=== PATIENT | male | born 1990 | race Caucasian/White ===

== ENCOUNTER 2020-12-04 16:40 | Inpatient (IN) | payer OTHER ==
[~2020-12-04] VITALS: Ht 172.7 cm; Wt 95.5 kg
[2020-12-04] MEDS ORDERED: LEXA1TAB PO ×2 (17:03→20:47)
[2020-12-04 17:36] LABS: HEMATOCRIT 48.6 % (42.0-52.0); HEMOGLOBIN 16.8 g/dl (13.5-17.5); MEAN CORPUSCULAR HEMOGLOBIN 29.7 pg (27.0-33.0); MEAN CORPUSCULAR HGB CONC 34.6 g/dl (32.0-36.5); PLATELET COUNT, AUTOMATED 194 10^3/uL (150-450); RED BLOOD COUNT 5.65 10^6/uL (4.30-6.10); WHITE BLOOD COUNT 8.2 10^3/uL (4.0-10.0)
[2020-12-04 18:37] LABS: ACETAMINOPHEN LEVEL < 2.0 UG/ML (10.0-30.0); ALBUMIN 4.1 GM/DL (3.2-5.2); ALT/SGPT 47 U/L (12-78); BILIRUBIN,DIRECT 0.1 MG/DL (0.0-0.2); BILIRUBIN,TOTAL 0.6 MG/DL (0.2-1.0); BLOOD UREA NITROGEN 12 MG/DL (7-18); CALCIUM LEVEL 9.5 MG/DL (8.5-10.1); CARBON DIOXIDE LEVEL 25 MEQ/L (21-32); CHLORIDE LEVEL 107 MEQ/L (98-107); CREATININE FOR GFR 0.88 MG/DL (0.70-1.30); ETHYL ALCOHOL (ETHANOL) < 0.003 % (0.000-0.010); GLOMERULAR FILTRATION RATE > 60.0 (>60); GLUCOSE, FASTING 102 MG/DL (70-100); POTASSIUM SERUM 4.2 MEQ/L (3.5-5.1); SALICYLATE LEVEL < 1.7 MG/DL (5.0-30.0); SODIUM LEVEL 141 MEQ/L (136-145); THYROID STIMULATING HORMONE 0.721 uIU/ML (0.358-3.740); TOTAL PROTEIN 7.3 GM/DL (6.4-8.2)
[2020-12-04 18:48] LABS: AMPHETAMINES LEVEL URINE NEGATIVE (NEGATIVE); BARBITURATES URINE NEGATIVE (NEGATIVE); BENZODIAZEPINES URINE NEGATIVE (NEGATIVE); CANNABINOIDS URINE NEGATIVE (NEGATIVE); COCAINE METABOLITE URINE NEGATIVE (NEGATIVE); METHADONE URINE NEGATIVE (NEGATIVE); OPIATES URINE NEGATIVE (NEGATIVE); PHENCYCLIDINE URINE NEGATIVE (NEGATIVE)
[2020-12-04] MEDS ORDERED: ACETAMINOPHEN TAB 650MG DOSE (2X325MG) PO PRN (20:40)
[2020-12-04] MEDS ORDERED: MAALOX 30 ML SUSP *UDC PO PRN (20:40)
[2020-12-04] MEDS ORDERED: MOM 30ML SUSPENSION UDC PO PRN (20:40)
[2020-12-05 01:40] VITALS: BP 124/70
[2020-12-05] MEDS: NICOTINE 21MG/24HR 1 EA TRANSDERMAL TD SCH (10:23)
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
[2020-12-05] MEDS: ESCITALOPRAM OXALATE 10 MG TAB (LEXAPRO) PO SCH (11:59)
[2020-12-05 18:02] VITALS: BP 122/70
[2020-12-05] MEDS ORDERED: LORazepam 1 MG TAB PO ONE (21:05)
[2020-12-05] MEDS: risperiDONE 2 MG TAB PO SCH (21:20)
[2020-12-05] MEDS: traZODone 50 MG TAB PO PRN (22:51)
[2020-12-06 06:29] VITALS: BP 109/55
[2020-12-06] MEDS: ESCITALOPRAM OXALATE 10 MG TAB (LEXAPRO) PO SCH (08:56)
[2020-12-06] MEDS: NICOTINE 21MG/24HR 1 EA TRANSDERMAL TD SCH (08:56)
--- NOTE | 2020-12-06 10:24 | MHIPNPDOC ---
[facility] Progress Note Progress Note DATE OF SERVICE: 12/06/20 The patient reported that he took or the prescribed medicine, including risperidone and stated that he felt some relief already. He reported that the hallucinations are not as intense and he had fairly peaceful night of sleep and is feeling a little bit more hopeful. He is denying any command hallucination and the more complain of side effect and is willing to fully cooperate. His behavior has been in control her, with no acting out behavior. HISTORY: . VITAL SIGNS: See below. NEW TEST RESULTS: . CURRENT MEDICATIONS: See below. MENTAL STATUS EXAMINATION: Patient is a 30-year old male, who is , pleasant Speech: Is rational, coherent. Language skills are good. Thought processes including: , Organized. Thought content: , Not reporting any paranoia and denies any suicidal thoughts. Abstract reasoning, and computation: Failure. Description of associations: Firm. Description of abnormal or psychotic thoughts: , No delusions, but persistent hallucinations. Judgment: Fair. Insight: fair. . Orientation: Where oriented. Recent and remote memory: Good . Attention span and concentration: Good. Language: . Fund of knowledge: Average. Mood: , Not as anxious or depressed. Affect: animated and appropriate. DIAGNOSES: 1. Major depression with psychotic feature. 2. . 3. . ASSESSMENT:Cooperating and tolerating his medicine and reports slight reduction in his symptoms MANAGEMENT PLAN: Continue the current treatment. TIME SPENT: 20 minutes. Vital Signs Vital Signs Date Time Temp Pulse Resp B/P (MAP) Pulse Ox O2 Delivery O2 Flow Rate FiO2 12/06/20 06:29 97.9 71 16 109/55 (73) 96 Room Air Current Medications Current Medications Medications (Trade) Dose Ordered Sig/Mami Route PRN Reason Start Time Stop Time Status Last Admin Dose Admin Acetaminophen (Tylenol Tab) 650 mg Q6HP PRN PO HEADACHE or DISCOMFORT 12/04/20 20:40 Al Hydrox/Mg Hydrox/Simethicone (Mylanta) 30 ml Q4HP PRN PO HEARTBURN/INDIGESTION 12/04/20 20:40 Escitalopram Oxalate (Lexapro) 10 mg DAILY PO 12/05/20 09:00 12/06/20 08:56 Home Med (Med Rec Complete!) ASDIRECTED XX 12/05/20 01:15 12/05/20 01:13 DC Magnesium Hydroxide (Milk Of Magnesia) 30 ml DAILYPRN PRN PO CONSTIPATION 12/04/20 20:40 Nicotine (Nicoderm Cq 21mg) 1 patch DAILY TD 12/05/20 09:00 12/06/20 08:56 Risperidone (RisperDAL) 2 mg QHS PO 12/05/20 21:00 12/05/20 21:20 Trazodone HCl (Desyrel) 50 mg QHSP PRN PO INSOMNIA 12/04/20 20:40 12/05/20 22:51 Allergies Coded Allergies: bee venom protein (honey bee) (Verified Allergy, Unknown, 12/04/20) JOSELIN MORE M.D. December 06, 2020 10:24
[2020-12-06 15:55] VITALS: BP 103/55
[2020-12-06 15:58] VITALS: BP_SYST 103; BP_SYST 141; BP_DIAS 55; BP_DIAS 69
[2020-12-06] MEDS: risperiDONE 2 MG TAB PO SCH (21:00)
[2020-12-06] MEDS: traZODone 50 MG TAB PO PRN (22:32)
[2020-12-07 06:05] VITALS: BP 112/62
[2020-12-07] MEDS: ESCITALOPRAM OXALATE 10 MG TAB (LEXAPRO) PO SCH (09:14)
[2020-12-07] MEDS: NICOTINE 21MG/24HR 1 EA TRANSDERMAL TD SCH (09:14)
--- NOTE | 2020-12-07 09:28 | MHIPNPDOC ---
[facility] Progress Note Progress Note DATE OF SERVICE: 12/07/20 The patient fully cooperated with the medications and reports that he is feeling better. He slept over 8 hours and didn't experience any auditory or visual ashley lucinations and claims that he didn't see anything on the wall since his admission, and feels very relieved. He is in good control appears more relaxed than animated and denies any active suicidal thoughts. He is hoping that his discharge paperwork gets processed the past and hoping to be out of service. He is denying any side effects from risperidone and feels that he is on the right combination of medications. HISTORY: . VITAL SIGNS: See below. NEW TEST RESULTS: . CURRENT MEDICATIONS: See below. MENTAL STATUS EXAMINATION: Patient is a 30 -year old male, who is , pleasant and cooperative. Speech: Is , relevant, coherent. Language skills are good. Thought processes including: Goal directed . Thought content: No gross delusions and denies any active suicidal thoughts. Abstract reasoning, and computation: Good. Description of associations: Good. Description of abnormal or psychotic thoughts: Reports marked reduction in his hallucinations. Judgment: , Fair. Insight: , Fair. Orientation: , Well oriented. Recent and remote memory: Good. Attention span and concentration: Good. Language: . Fund of knowledge: Average. Mood: , Not as anxious or depressed. Affect: , Appropriate, slightly blunted. DIAGNOSES: 1. . Major depression with psychotic feature 2. . 3. . ASSESSMENT:Maintaining good control and showing improvement MANAGEMENT PLAN: . Continue with the current medicine and supportive therapy. TIME SPENT: 20 minutes. Vital Signs Vital Signs Date Time Temp Pulse Resp B/P (MAP) Pulse Ox O2 Delivery O2 Flow Rate FiO2 12/07/20 06:05 98.1 75 18 112/62 (79) 95 Room Air Current Medications Current Medications Medications (Trade) Dose Ordered Sig/Mami Route PRN Reason Start Time Stop Time Status Last Admin Dose Admin Acetaminophen (Tylenol Tab) 650 mg Q6HP PRN PO HEADACHE or DISCOMFORT 12/04/20 20:40 Al Hydrox/Mg Hydrox/Simethicone (Mylanta) 30 ml Q4HP PRN PO HEARTBURN/INDIGESTION 12/04/20 20:40 Escitalopram Oxalate (Lexapro) 10 mg DAILY PO 12/05/20 09:00 12/07/20 09:14 Home Med (Med Rec Complete!) ASDIRECTED XX 12/05/20 01:15 12/05/20 01:13 DC Magnesium Hydroxide (Milk Of Magnesia) 30 ml DAILYPRN PRN PO CONSTIPATION 12/04/20 20:40 Nicotine (Nicoderm Cq 21mg) 1 patch DAILY TD 12/05/20 09:00 12/07/20 09:14 Risperidone (RisperDAL) 2 mg QHS PO 12/05/20 21:00 12/06/20 21:00 Trazodone HCl (Desyrel) 50 mg QHSP PRN PO INSOMNIA 12/04/20 20:40 12/06/20 22:32 Allergies Coded Allergies: bee venom protein (honey bee) (Verified Allergy, Unknown, 12/04/20) JOSELIN MORE M.D. December 07, 2020 09:27
[2020-12-07 18:20] VITALS: BP 147/74
[2020-12-07] MEDS: risperiDONE 2 MG TAB PO SCH (21:00)
[2020-12-07] MEDS: traZODone 50 MG TAB PO PRN (21:01)
[2020-12-08 06:29] VITALS: BP 131/66
[2020-12-08] MEDS: NICOTINE 21MG/24HR 1 EA TRANSDERMAL TD SCH (09:24)
[2020-12-08] MEDS: ESCITALOPRAM OXALATE 10 MG TAB (LEXAPRO) PO SCH (09:24)
[2020-12-08 16:42] VITALS: BP 155/83
--- NOTE | 2020-12-08 18:18 | MHIPN ---
[facility] PROGRESS NOTE DATE: 12/08/2020 The patient today tells me that, "I'm doing great." He says he slept good. He has no complaints. He is denying suicidal thoughts. MENTAL STATUS EXAMINATION: This patient is alert and oriented time three. Eye contact is fairly good. He is verbally spontaneous. There is no formal thought disorder noted. His mood is good. Affect is appropriate to mood. He is not psychotic, suicidal, homicidal. Concentration and memory are intact. Insight and judgment are fair. DIAGNOSIS: Major depressive disorder with psychotic symptoms. TREATMENT PLAN: At this point, we will continue to monitor the patient for continued resolution of any psychotic symptoms and stabilization of his mood and resolution of any suicidal thoughts. We will continue to titrate medications as indicated.
[2020-12-08] MEDS: traZODone 50 MG TAB PO PRN (20:24)
[2020-12-08] MEDS: risperiDONE 2 MG TAB PO SCH (20:24)
[2020-12-08] MEDS ORDERED: traZODone 50 MG TAB PO ONE (22:20)
[2020-12-09 06:30] VITALS: BP 110/63
[2020-12-09] MEDS: NICOTINE 21MG/24HR 1 EA TRANSDERMAL TD SCH (08:38)
[2020-12-09] MEDS: ESCITALOPRAM OXALATE 10 MG TAB (LEXAPRO) PO SCH (08:39)
[2020-12-09 17:59] VITALS: BP 139/62
[2020-12-09] MEDS: risperiDONE 2 MG TAB PO SCH (20:08)
[2020-12-09] MEDS ORDERED: traZODone 100 MG TAB PO PRN (22:20)
[2020-12-10 06:55] VITALS: BP 137/71
[2020-12-10] MEDS: ESCITALOPRAM OXALATE 10 MG TAB (LEXAPRO) PO SCH (08:28)
[2020-12-10] MEDS: NICOTINE 21MG/24HR 1 EA TRANSDERMAL TD SCH (08:29)
[2020-12-10] MEDS ORDERED: LEXA1TAB PO (08:50)
[2020-12-10] MEDS ORDERED: RISP-9 PO (08:50)
--- NOTE | 2020-12-10 11:25 | MHDSPDOC ---
[facility] Discharge Summary Discharge Summary DATE OF ADMISSION: December 04, 2020 at 20:40 DATE OF DISCHARGE: 12/10/20 DISCHARGE DIAGNOSES: 1. .major depression with psychotic feature 2. . REASON FOR ADMISSION: 30-year-old who had a recent episode of depression, currently taking Lexapro brought to the emergency room after he reported increasing auditory and visual hallucination and vague suicidal thoughts CONSULTANTS INVOLVED: None TREATMENT AND PROGRESS ON THE UNIT : Was seen for daily supportive therapy. Continued with these are Lexapro and started risperidone 2 mg at bedtime. Patient showed rapid improvement with decreasing hallucination and denied any more suicidal thoughts. HOSPITAL COURSE: The patient was a little dramatic, but pleasant throughout the stay and maintained good control. He tolerated risperidone without any side effect. Reports marked the relief in his psychotic symptoms and strongly denies any suicidal thoughts. He stated safe to return to the unit and wait for his scheduled discharge from the service. He denies any other thoughts, plan or intent and maintained a good control. DISCHARGE ASSESSMENT: Markedly improved. No suicide MENTAL STATUS EXAMINATION ON DISCHARGE: Patient is a 30-year old male, who is in no acute distress. Speech is clear, organized. Language skills are good. Thought processes including: Well-organized. Thought content: no hallucinations anymore and no suicidal thoughts. Abstract reasoning, and computation: Flare. Description of associations: Rational, coherent. Description of abnormal or psychotic thoughts: None. Judgment: Fair . Insight: Fair. Orientation to , well oriented. Recent and remote memory: Good. Attention span and concentration: Good. Language: . Fund of knowledge: Average. Mood: Euthymic. Affect: , Animated and appropriate. MEDICATIONS ON DISCHARGE: - , Lexapro 10 mg for 7 days. - Risperidone 2 mg at bedtime for 7 day. With a 3 refills which - for . PLAN/FOLLOWUP ARRANGEMENTS: As arranged. The amount of time spent in the coordination of care for this patient was approximately 45 minutes. ETOH/Disorder Med Rx ETOH/DRUG DISORDER RX: N/A Vital Signs/I&Os Vital Signs Date Time Temp Pulse Resp B/P (MAP) Pulse Ox O2 Delivery O2 Flow Rate FiO2 12/10/20 06:55 99.4 75 20 137/71 (93) 96 Room Air Laboratory Data Microbiology Microbiology 12/04/20 Respiratory Virus Panel (PCR) (BENNY) - Final, Complete Medications Scheduled Escitalopram Oxalate (Lexapro) 10 Mg Tablet, 10 MG PO DAILY for depression for 7 Days, #7 Risperidone (Risperidone) 2 Mg Tablet, 2 MG PO QHS for hallucination for 7 Days, #7 Allergies Coded Allergies: bee venom protein (honey bee) (Verified Allergy, Unknown, 12/04/20) JOSELIN MORE M.D. December 10, 2020 11:25
--- NOTE | 2020-12-10 11:33 | MHIPN ---
[facility] PROGRESS NOTE DATE: 12/09/2020 HISTORY OF PRESENT ILLNESS: The patient today states "I'm doing great." He says he slept well. He has no complaints. MENTAL STATUS EXAM: This patient is alert and oriented times 3. Eye contact is good. He is verbally spontaneous. There is no formal thought disorder noted. Mood is "great." Affect appropriate. Patient is not psychotic, suicidal or homicidal. Concentration is fair. Memory intact. Insight and judgment is fair. DIAGNOSIS: Major depression disorder with psychotic symptoms. TREATMENT PLAN: We will continue to monitor the patient for continued elevation and stabilization of his mood and continue resolution of any psychotic symptoms or suicidal ideation.
== END 2020-12-10 11:39 | disposition home or self-care (01) | DRG 885 ==
LOC: M ED 16:40 → M ED INP 20:40 → M PSY 12-05 01:07
PROVIDERS: ADMIT Psychiatry & Neurology Psychiatry; ATTEND Psychiatry & Neurology Psychiatry
DX: F32.3 Major depressive disorder, single episode, severe with psychotic features (principal); Z91.030 Bee allergy status

== ENCOUNTER 2020-12-16 22:34 | Inpatient (IN) | payer OTHER ==
[~2020-12-16] VITALS: Ht 172.7 cm; Wt 100.6 kg
[~2020-12-16 22:34] MED LIST: LEXA1TAB PO; RISP-9 PO
[2020-12-16 22:54] LABS: HEMATOCRIT 45.5 % (42.0-52.0); HEMOGLOBIN 15.7 g/dl (13.5-17.5); MEAN CORPUSCULAR HEMOGLOBIN 29.5 pg (27.0-33.0); MEAN CORPUSCULAR HGB CONC 34.5 g/dl (32.0-36.5); MEAN CORPUSCULAR VOLUME 85.5 fl (80.0-96.0); PLATELET COUNT, AUTOMATED 185 10^3/uL (150-450); RED BLOOD COUNT 5.32 10^6/uL (4.30-6.10); WHITE BLOOD COUNT 8.7 10^3/uL (4.0-10.0)
[2020-12-16 23:07] LABS: AMPHETAMINES LEVEL URINE NEGATIVE (NEGATIVE); BARBITURATES URINE NEGATIVE (NEGATIVE); BENZODIAZEPINES URINE NEGATIVE (NEGATIVE); CANNABINOIDS URINE NEGATIVE (NEGATIVE); COCAINE METABOLITE URINE NEGATIVE (NEGATIVE); METHADONE URINE NEGATIVE (NEGATIVE); OPIATES URINE NEGATIVE (NEGATIVE); PHENCYCLIDINE URINE NEGATIVE (NEGATIVE)
[2020-12-16 23:39] LABS: ACETAMINOPHEN LEVEL < 2.0 UG/ML (10.0-30.0); ALBUMIN 3.6 GM/DL (3.2-5.2); ALT/SGPT 74 U/L (12-78); BILIRUBIN,DIRECT < 0.1 MG/DL (0.0-0.2); BILIRUBIN,TOTAL 0.3 MG/DL (0.2-1.0); BLOOD UREA NITROGEN 12 MG/DL (7-18); CARBON DIOXIDE LEVEL 26 MEQ/L (21-32); CHLORIDE LEVEL 108 MEQ/L (98-107); CREATININE FOR GFR 0.86 MG/DL (0.70-1.30); ETHYL ALCOHOL (ETHANOL) < 0.003 % (0.000-0.010); GLOMERULAR FILTRATION RATE > 60.0 (>60); GLUCOSE, FASTING 124 MG/DL (70-100); SALICYLATE LEVEL < 1.7 MG/DL (5.0-30.0); SODIUM LEVEL 142 MEQ/L (136-145); TOTAL PROTEIN 6.9 GM/DL (6.4-8.2)
--- NOTE | 2020-12-17 00:18 | REPVR ---
PROCEDURE INFORMATION: Exam: CT Head Without Contrast Exam date and time: 12/16/2020 11:59 PM Age: 30 years old Clinical indication: Other: Head injury TECHNIQUE: Imaging protocol: Computed tomography of the head without contrast. Radiation optimization: All CT scans at this facility use at least one of these dose optimization techniques: automated exposure control; mA and/or kV adjustment per patient size (includes targeted exams where dose is matched to clinical indication); or iterative reconstruction. COMPARISON: No relevant prior studies available. FINDINGS: Brain: Normal. No hemorrhage. Unremarkable white matter. No mass effect. Cerebral ventricles: No ventriculomegaly. Paranasal sinuses: Visualized sinuses are unremarkable. No fluid levels. Mastoid air cells: Visualized mastoid air cells are well aerated. Bones/joints: Unremarkable. No acute fracture. Soft tissues: Unremarkable. IMPRESSION: No acute intracranial abnormality. Electronically signed by: Eric Black On 12/17/2020 00:17:44 AM
[2020-12-17] MEDS ORDERED: LEXA1TAB PO (00:26)
[2020-12-17] MEDS ORDERED: RISP2TAB32 PO (00:26)
[2020-12-17] MEDS: ESCITALOPRAM OXALATE 10 MG TAB (LEXAPRO) PO SCH (09:03)
[2020-12-17 16:03] LABS: RSV AMPLIFICATION NEGATIVE (NEGATIVE)
[2020-12-17] MEDS: risperiDONE 2 MG TAB PO SCH ×2 (20:52→21:39)
[2020-12-17] MEDS ORDERED: traZODone 50 MG TAB PO ONE (21:00)
[2020-12-18] MEDS: ESCITALOPRAM OXALATE 10 MG TAB (LEXAPRO) PO SCH (08:01)
[2020-12-18] MEDS ORDERED: NICOTINE 7 MG/24 HR TRANSDERMAL TD ONE (10:55)
[2020-12-18] MEDS ORDERED: ACETAMINOPHEN TAB 650MG DOSE (2X325MG) PO PRN (18:35)
[2020-12-18] MEDS ORDERED: MOM 30ML SUSPENSION UDC PO PRN (18:35)
[2020-12-18] MEDS ORDERED: MAALOX 30 ML SUSP *UDC PO PRN (18:35)
[2020-12-18 21:12] VITALS: BP 124/89
[2020-12-18] MEDS: risperiDONE 2 MG TAB PO SCH (21:39)
[2020-12-18] MEDS: traZODone 50 MG TAB PO PRN (23:04)
[2020-12-19 06:00] VITALS: BP 111/64
[2020-12-19] MEDS: NICOTINE 21MG/24HR 1 EA TRANSDERMAL TD SCH (08:02)
[2020-12-19] MEDS: ESCITALOPRAM OXALATE 10 MG TAB (LEXAPRO) PO SCH (08:02)
--- NOTE | 2020-12-19 10:12 | MHHPEPDOC ---
General Date Of Admission: Dec 18, 2020 Legal Status: 9.39 Chief Complaint ". I made a mistake with my medicine and I was feeling confused History of Present Illness HISTORY OF THE PRESENT ILLNESS: Patient is a 30 -year-old , male, who [was recently discharged after being stabilized with Lexapro and Risperdal. Patient claims that on Thursday he took extra dose of Lexapro but didn't take his risperidone and was experiencing increasing confusion and paranoia who was brought to emergency. He claims that he is feeling much better now after spending 2 nights at the emergency room and is not having any acute symptoms of paranoia and feeling much better.]. Psychiatric Review of Systems Depression (2 or more weeks): denies Mckenzie (4 or more days of): denies Psychosis: paranoia PTSD: denies Anxiety: situational anxiety Past Psychiatric History Previous Psychiatric Diagnosis: [2 recent admission. Recent discharge about a week ago. Major depression with psychosis]. Previous Psychiatric Admissions: . Suicide Attempts: [No history of suicidal attempt]. Psychiatric Follow-up: [In follow-up at behavioral health unit]. Psychiatric medications: ., Lexapro 10 mg and risperidone 2 mg at bedtime Past Medical History Medical Problems None Head Injury: No Seizures: No Hospitalizations: No Surgeries: No Family Medical/Psychiatric HX Medical Problems Noncontributory Psychiatric Disorders: No Addiction: No Suicide Attemps/Completions: No Addiction History denies Social History Childhood: Uneventful]. Abuse/Trauma:[Denies]. Current Living Situation: [Lives at the [facility]]. Education: [High school]. 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 Social Support: . Legal: . Marital: . Mental Status Examination General Appearance: well groomed, appears stated age Build: average Demeanor: average Eye Contact: average Activity: average Behavior: cooperative Speech: clear, normal volume Mood: euthymic Affect: full, appropriate, congruent Thought Process: other (rational, coherent) Thought Content (Delusions): none reported Thought Content (Other): none reported Thought Content (Aggressive): none reported Perception (Hallucinations): none reported Perception (Other): none reported Cognition (Impairment of): none reported Cognition(Intelligence Est.): average Oriented: Awake, Alert, Oriented times three Insight: fair Judgment: Fair Psychosis: Denies Diagnoses Major depression, recurrent, with psychotic feature A-FIB/CHADSVASC A-FIB History Current/History of A-Fib/PAF?: No Current PO Anticoag Therapy: No Age/Risk Factor Scoring CHADSVASC: CHADSVASC Response (Comments) Value Gender Risk Factor Male 0 Hx of CHF No 0 Hx of HTN No 0 Hx of Stroke/TIA/or VTE No 0 Hx of Diabetes No 0 Hx of Vascular Disease No 0 Total 0 Treatment Treatment ordered: NONE Assessment Doesn't appear to be acutely paranoid and denies any lethality issues and yoon ears to be at his baseline. Initial Treatment Plan 1. Patient was admitted on a [9.39] status. 2. Complete history was obtained. 3. With patients permission, family will be contacted and database will be expanded. 4. Patients medication regimen will be reviewed and changed accordingly. 5. Patient will be provided with protected environment. 6. Patient will be treated with individual, group, and milieu therapies. 7. Patient will receive supportive psych-education. 8. Discharge planning will commence immediately. 9. Outpatient follow-up treatment will be strongly recommended. 10. The initial treatment plan will focus initially on: * Depression. * Risk for suicide. ESTIMATED LENGTH OF STAY: [2]-3] DAYS. TIME SPENT COUNSELING AND COORDINATING INITIAL CARE: [40] minutes. Tobacco Cessation Screen If Patient is a Smoker Nonsmoker N/A-No Antipsychotics Vital Signs Vital Signs Date Time Temp Pulse Resp B/P (MAP) Pulse Ox O2 Delivery O2 Flow Rate FiO2 12/19/20 06:00 98.0 67 20 111/64 (80) 95 Room Air Laboratory Data 24H Labs Laboratory Tests 2 12/19/20 09:41: Medications Scheduled Escitalopram Oxalate (Lexapro) 10 Mg Tablet, 10 MG PO DAILY, (Reported) Risperidone (Risperdal) 2 Mg Tablet, 2 MG PO QHS, (Reported) Allergies Coded Allergies: bee venom protein (honey bee) (Verified Allergy, Unknown, 12/04/20) JOSELIN MORE M.D. Dec 19, 2020 10:12
[2020-12-19 10:31] LABS: FREE T4 0.9 NG/DL (0.76-1.46); THYROID STIMULATING HORMONE 1.43 uIU/ML (0.358-3.740)
[2020-12-19 10:51] LABS: TOTAL T3 111.9 NG/DL (60.0-181.0)
--- NOTE | 2020-12-19 15:35 | HPEPDOC ---
[facility] Medical History & Physical Date of Admission Dec 18, 2020 Date of Service: Dec 19, 2020 History and Physical Chief complaint: Who presented to the hospital with suicidal ideation History of present illness: Patient is 30-year-old male with past medical history of PTSD, depression and schizophrenia who presented to the hospital with suicidal ideation. Patient was admitted to inpatient mental health unit under the care of psychiatry. Hospitalist service was consulted for medical screening evaluation. Currently patient denies any headache, nausea, vomiting, chest pain, shortness breath, palpitations, cough, abdominal pain consultation, diarrhea, or urinary discomfort. Patient denies any recent fevers or chills. Patient does report a slight decrease in his weight. Reports his appetite is fairly normal. Past Medical History: PTSD Depression Schizophrenia Past Surgical History: Tonsillectomy [place] tooth extraction Allergies: See below Medications: See below Family History: - Reviewed and noncontributory Social History: - Denies the use of illicit drugs; patient is a smoker of 12 years; patient reports that he quit the use of alcohol - Denies recent travel or sick contacts - Lives with and child - Occupation; active Review of Systems: 10 point review of systems complete, all negative otherwise stated in HPI Physical exam: - Vitals: BP [111/64], HR [67], RR [20], Sat [95%RA], Temp [98.0F] - General: Lying in bed, Speaking in full sentences, AAOx3 - HEENT: NC, AT, PERRLA - CVS: RRR, +S1S2 - Lungs: Fair air entry bilaterally, No appreciable wheezing / rales / rhonchi - Abdomen: Soft, Non-distended, Non-tender - Extremities: No lower extremity edema, No calf tenderness - Neuro: No focal motor or sensory deficit - Skin: No visible rashes Labs: CT head 12/16: No acute intracranial abnormality. Imaging: See below EKG: See below Assessment and Plan: Suicidal ideation - History of PTSD, Depression and Schizophrenia - Patient was admitted to inpatient mental health unit under the care of psychiatry - Currently being managed by psychiatry Abnormal TSH - Repeat TSH, free T4 and total T3 are within normal limits DVT prophylaxis - Will c/w early ambulation Female flatwork assembler was present for the duration of this history and physical examination Thank you for this consultation; hospital service will now sign off. Please re- consult as needed Vital Signs Vital Signs Date Time Temp Pulse Resp B/P (MAP) Pulse Ox O2 Delivery O2 Flow Rate FiO2 12/19/20 06:00 98.0 67 20 111/64 (80) 95 Room Air Laboratory Data Labs 24H Laboratory Tests 2 12/19/20 09:41: Thyroid Stimulating Hormone (TSH) 1.430, Free Thyroxine 0.90, Total Triiodothyronine 111.9 Home Medications Scheduled Escitalopram Oxalate (Lexapro) 10 Mg Tablet, 10 MG PO DAILY Risperidone (Risperdal) 2 Mg Tablet, 2 MG PO QHS Allergies Coded Allergies: bee venom protein (honey bee) (Verified Allergy, Unknown, 12/04/20) KRYSTLE PIERRE MD Dec 19, 2020 15:34
[2020-12-19 17:07] VITALS: BP 139/87
[2020-12-19] MEDS: traZODone 50 MG TAB PO PRN (20:34)
[2020-12-19] MEDS: risperiDONE 2 MG TAB PO SCH (20:35)
[2020-12-20 07:20] VITALS: BP 96/52
[2020-12-20] MEDS: NICOTINE 21MG/24HR 1 EA TRANSDERMAL TD SCH (09:00)
[2020-12-20] MEDS: ESCITALOPRAM OXALATE 10 MG TAB (LEXAPRO) PO SCH (09:05)
--- NOTE | 2020-12-20 12:02 | MHDSPDOC ---
[facility] Discharge Summary Discharge Summary DATE OF ADMISSION: Dec 18, 2020 at 18:32 DATE OF DISCHARGE: Dec 20, 2020 at 11:10 DISCHARGE DIAGNOSES: 1. . Major depression, recurrent, with psychotic feature 2. . REASON FOR ADMISSION: The patient reported that after missing his risperidone by accident. He was feeling confused and psychotic and admitted for stabilization CONSULTANTS INVOLVED: None TREATMENT AND PROGRESS ON THE UNIT : The patient to the several admission due to complaint of depression and auditory hallucination and was stabilized with Lexapro and risperidone in his previous admission after his admission, patient was continued on his Lexapro and risperidone and the patient reports dramatic improvement and recovery, claiming that he is feeling great wonderful and not having any hallucination or suicidal thoughts. He is animated, productive and appropriate and very sociable and showing no serious symptoms of depression or psychosis.. HOSPITAL COURSE: Patient denies any hallucination or paranoia, and remained in good spirits control her and in no acute distress and does not show any serious depressive or psychotic symptoms DISCHARGE ASSESSMENT: , Stable and not suicidal MENTAL STATUS EXAMINATION ON DISCHARGE: Patient is a 30-year old male, who is animated, pleasant. Speech is good. Language skills are good. Thought processes including: , Organized. Thought content: Denies any hallucination or suicidal thoughts. Abstract reasoning, and computation: Good. Description of associations: Were organized. Description of abnormal or psychotic thoughts: None. Judgment: Fair. Insight: [Fair. Orientation to [, well-oriented. Recent and remote memory: Good . Attention span and concentration: Good. Language: . Fund of knowledge: Average. Mood: Euthymic. Affect: ., Bright and appropriate MEDICATIONS ON DISCHARGE: - for . Continue his current medicine of Lexapro 10 mg daily and risperidone 2 mg at bedtime - for . - for . PLAN/FOLLOWUP ARRANGEMENTS: To follow up with his current outpatient. The amount of time spent in the coordination of care for this patient was approximately 35 minutes. ETOH/Disorder Med Rx ETOH/DRUG DISORDER RX: N/A Vital Signs/I&Os Vital Signs Date Time Temp Pulse Resp B/P (MAP) Pulse Ox O2 Delivery O2 Flow Rate FiO2 12/20/20 07:20 98.1 84 18 96/52 (67) 98 Room Air Medications Scheduled Escitalopram Oxalate (Lexapro) 10 Mg Tablet, 10 MG PO DAILY, (Reported) Risperidone (Risperdal) 2 Mg Tablet, 2 MG PO QHS, (Reported) Allergies Coded Allergies: bee venom protein (honey bee) (Verified Allergy, Unknown, 12/04/20) JOSELIN MORE M.D. Dec 20, 2020 12:02
== END 2020-12-20 11:10 | disposition home or self-care (01) | DRG 885 ==
LOC: M ED 22:34 → M ED INP 12-18 18:32 → M PSY 12-18 21:10
PROVIDERS: ADMIT Psychiatry & Neurology Psychiatry; ATTEND Psychiatry & Neurology Psychiatry
DX: F33.3 Major depressive disorder, recurrent, severe with psychotic symptoms (principal); F43.10 Post-traumatic stress disorder, unspecified; Z91.030 Bee allergy status; Z79.899 Other long term (current) drug therapy

== ENCOUNTER 2021-01-23 08:18 | Emergency (ER) | payer OTHER ==
[~2021-01-23] VITALS: Ht 172.7 cm; Wt 105.1 kg
[~2021-01-23 08:18] MED LIST changes: +RISP2TAB32 PO
[2021-01-23 11:41] LABS: BASO % 0.3 % (0.0-1.0); EOS # 0.2 10^3/uL (0.0-0.5); EOS % 3.4 % (0.0-3.0); HEMATOCRIT 46.9 % (42.0-52.0); HEMOGLOBIN 16.1 g/dl (13.5-17.5); LYMPH # 2.4 10^3/uL (1.5-5.0); LYMPH % 35.2 % (24.0-44.0); MEAN CORPUSCULAR HEMOGLOBIN 29.4 pg (27.0-33.0); MEAN CORPUSCULAR HGB CONC 34.3 g/dl (32.0-36.5); MEAN CORPUSCULAR VOLUME 85.6 fl (80.0-96.0); MONO # 0.4 10^3/uL (0.0-0.8); MONO % 6.4 % (2.0-8.0); NEUTROPHILS # 3.7 10^3/uL (1.5-8.5); NEUTROPHILS % 54.4 % (36.0-66.0); PLATELET COUNT, AUTOMATED 203 10^3/uL (150-450); RED BLOOD COUNT 5.48 10^6/uL (4.30-6.10); WHITE BLOOD COUNT 6.7 10^3/uL (4.0-10.0)
[2021-01-23] MEDS ORDERED: GI COCKTAIL 50ML BTL(HYOSCYAMINE/MAALOX/LIDOCAINE VISCOUS)(1:3:1) PO ONE (11:45)
[2021-01-23 12:09] LABS: ALT/SGPT 82 U/L (12-78); BILIRUBIN,DIRECT 0.1 MG/DL (0.0-0.2); BILIRUBIN,TOTAL 0.5 MG/DL (0.2-1.0); CK-MB VALUE MASS < 1.0 NG/ML (<3.6); CPK CREATINE PHOSPHOKINASE 162 U/L (39-308); LIPASE 93 U/L (73-393); MB/CK RELATIVE INDEX 0.62 (< OR =4); TOTAL PROTEIN 7.3 GM/DL (6.4-8.2); TROPONIN I < 0.02 NG/ML (< 0.10)
--- NOTE | 2021-01-23 12:16 | REP ---
INDICATION: intermittent chest pain x2 weeks COMPARISON: None. TECHNIQUE: PA and lateral. FINDINGS: The mediastinum and cardiac silhouette are normal. The lung aguilar are clear and without acute consolidation, effusion, or pneumothorax. The skeletal structures are intact and normal. IMPRESSION: No acute cardiopulmonary process. <Electronically signed by Jb Westbrook > 01/23/21 [id number]
[2021-01-23 13:59] VITALS: BP 126/69
[2021-01-23 14:12] LABS: CK-MB VALUE MASS < 1.0 NG/ML (<3.6); CPK CREATINE PHOSPHOKINASE 150 U/L (39-308); MB/CK RELATIVE INDEX 0.67 (< OR =4); TROPONIN I < 0.02 NG/ML (< 0.10)
[2021-01-23] MEDS ORDERED: PANT40TA29 PO (14:22)
--- NOTE | 2021-01-23 20:11 | ECGEPIP ---
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
--- NOTE | 2021-01-23 20:13 | ECGEPIP ---
[facility] - ED Test Date: 2021-01-23 Pat Name: NANO STEPHENSON Department: Room: - Gender: Male [place] Hand: : 1990 Requested By: KAMRYN Gomes PA-C Order Number: [id number] Reading MD: Melida Gilmore Measurements Intervals [place] Rate: 63 P: 16 ND: 132 QRS: 30 QRSD: 98 T: 20 QT: 390 QTc: 399 Interpretive Statements Normal sinus rhythm decreased rate 01/23/21 Electronically Signed on 01-23-2021 20:13:35 EDT by Melida Gilmore
== END 2021-01-23 14:42 | disposition home or self-care (01) ==
LOC: M ED 08:18
DX: K21.9 Gastro-esophageal reflux disease without esophagitis (principal); F43.0 Acute stress reaction; R07.9 Chest pain, unspecified; J45.909 Unspecified asthma, uncomplicated; F17.200 Nicotine dependence, unspecified, uncomplicated; F32.9 Major depressive disorder, single episode, unspecified; F43.10 Post-traumatic stress disorder, unspecified; F41.9 Anxiety disorder, unspecified; Z79.899 Other long term (current) drug therapy; Z91.030 Bee allergy status

== ENCOUNTER → 2021-02-18 | Outpatient (CLI) | payer OTHER ==
[~2021-02-18] MED LIST changes: +ACET500T15 PO; +AUGM875T28 PO; +IBUP200T46 PO; +IBUP80TA PO; +ISOVUE-370 76% 100ML VIAL ONE; +PANT40TA29 PO
== END ==
LOC: M PLAIMG 10:16
PROVIDERS: ATTEND Psychiatry & Neurology Psychiatry
DX: R44.3 Hallucinations, unspecified (principal)
CPT/HCPCS: 70470; Q9967

== ENCOUNTER 2021-07-18 17:17 | Emergency (ER) | payer OTHER ==
[~2021-07-18] VITALS: Ht 172.7 cm; Wt 100.7 kg
[~2021-07-18 17:17] MED LIST changes: -ACET500T15 PO; -AUGM875T28 PO; -IBUP200T46 PO; -IBUP80TA PO; -ISOVUE-370 76% 100ML VIAL ONE
[2021-07-18] MEDS ORDERED: IBUP200T46 PO (18:09)
[2021-07-18] MEDS ORDERED: ACETAMINOPHEN 500 MG TAB PO ONE (20:00)
[2021-07-18] MEDS ORDERED: AUGMENTIN 875 MG TAB PO ONE (20:00)
[2021-07-18] MEDS ORDERED: IBUP80TA PO (20:10)
[2021-07-18] MEDS ORDERED: AUGM875T28 PO (20:10)
[2021-07-18] MEDS ORDERED: ACET500T15 PO (20:10)
[2021-07-18 20:41] VITALS: BP 159/96
== END 2021-07-18 20:42 | disposition home or self-care (01) ==
LOC: M ED 17:17
DX: K04.7 Periapical abscess without sinus (principal); F17.200 Nicotine dependence, unspecified, uncomplicated; F17.290 Nicotine dependence, other tobacco product, uncomplicated; Z79.899 Other long term (current) drug therapy; Z91.030 Bee allergy status

== ENCOUNTER → 2021-09-05 | Outpatient (CLI) | payer OTHER ==
[~2021-09-05] MED LIST changes: +ACET500T15 PO; +AUGM875T28 PO; +IBUP200T46 PO; +IBUP80TA PO; +METHACHOLINE KIT (J7674) INH ONE
== END ==
LOC: M CARPUL 14:33
PROVIDERS: ATTEND Physician Assistant
DX: R06.00 Dyspnea, unspecified (principal)
CPT/HCPCS: 94070; J7674